=== PATIENT | male | born 1970 | race Caucasian/White ===

== ENCOUNTER 2017-07-14 06:01 | Emergency (ER) | payer SELFPAY ==
[2017-07-14] MEDS: ACETAMINOPHEN 500 MG TAB PO (07:05)
== END 2017-07-14 08:50 | disposition home or self-care (01) ==
LOC: FTE 06:01
DX: S29.9XXA Unspecified injury of thorax, initial encounter (principal); F17.210 Nicotine dependence, cigarettes, uncomplicated; W01.0XXA Fall on same level from slipping, tripping and stumbling without subsequent striking against object, initial encounter; Y92.9 Unspecified place or not applicable
CPT/HCPCS: 71045; 71100; 72072; 99283-25

== ENCOUNTER 2017-08-03 17:55 | Emergency (ER) | payer SELFPAY | END 2017-08-03 19:12 | disposition left against medical advice (07) | LOC: E/R 19:12 | DX: Z53.21 Procedure and treatment not carried out due to patient leaving prior to being seen by health care provider (principal) ==

== ENCOUNTER 2017-08-05 18:20 | Emergency (ER) | payer SELFPAY | END 2017-08-05 19:46 | disposition left against medical advice (07) | LOC: FTE 18:20 | DX: Z53.21 Procedure and treatment not carried out due to patient leaving prior to being seen by health care provider (principal) ==